=== PATIENT | female | born 1975 | race African-American/Black ===

== ENCOUNTER 2017-04-07 22:25 | Emergency (ER) | payer OTHER, SELFPAY ==
[2017-04-07] MEDS ORDERED: Acetaminophen/Codeine 30-300mg Tablet ONE ×2 (22:50)
--- NOTE | 2017-04-07 23:08 | RAD ---
THREE VIEWS OF THE LEFT HAND 04/07/17 COMPARISON: 01/20/17 HISTORY: Fall, trauma, injury. FINDINGS: No displaced fracture or evidence of dislocation. No radiopaque foreign body or subcutaneous gas. IMPRESSION: No acute osseous abnormality. POS: [facility]
--- NOTE | 2017-04-07 23:29 | RAD ---
FOUR VIEWS OF THE LEFT KNEE 04/07/17 COMPARISON: None. HISTORY: Fall, pain. FINDINGS: No fracture or dislocation. No radiopaque foreign body or subcutaneous gas. The lateral examination is limited secondary to patient positioning, limiting assessment for a knee joint effusion. IMPRESSION: No acute findings. POS: [facility]
== END 2017-04-07 23:38 | disposition home or self-care (01) ==
LOC: MADERS 22:25
DX: S83.92XA Sprain of unspecified site of left knee, initial encounter (principal); S60.222A Contusion of left hand, initial encounter; W19.XXXA Unspecified fall, initial encounter; Y93.39 Activity, other involving climbing, rappelling and jumping off

== ENCOUNTER 2017-09-18 11:59 | Emergency (ER) | payer OTHER, SELFPAY ==
[2017-09-18 12:59] LABS: ALT (SGPT) 11 U/L (8-55); AST (SGOT) 13 U/L (5-34); Albumin 4.1 g/dL (3.5-5.0); Alkaline Phosphatase 50 U/L (40-150); Anion Gap 16 mmol/L (10-20); BUN (Urea Nitrogen) 13 mg/dL (7.0-18.7); Bilirubin, Total 0.3 mg/dL (0.2-1.2); Calc. Creatinine Clearance 0 mL/min (70-130); Calcium 9.1 mg/dL (7.8-10.44); Carbon Dioxide 20 mmol/L (22-29); Chloride 110 mmol/L (98-107); Estimated GFR-MDRD Greater than 90; Globulin 3.5 g/dL (2.4-3.5); Glucose 79 mg/dL (70-105); Potassium 3.7 mmol/L (3.5-5.1); Protein, Total 7.6 g/dL (6.0-8.3); Sodium 142 mmol/L (136-145)
[2017-09-18 13:01] LABS: CKMB 0.7 ng/mL (0-6.6); Troponin I Less than 0.010 ng/mL (< 0.028)
[2017-09-18 13:04] LABS: Eosinophils 2 % (0-10); Hemoglobin 12.7 g/dL (12.0-16.0); Lymphocytes 31 % (21-51); MDiff Complete? YES; Mean Corpuscular HGB CONC 33.5 g/dL (32.0-36.0); Mean Corpuscular Hemoglobin 31.7 pg (27.0-31.0); Mean Corpuscular Volume 94.6 fl (81.0-99.0); Mean Platelet Volume 6.2 fL (7.4-10.4); Monocytes 4 % (0-10); Neutrophil 39 % (42-75); PLT Morphology Comment Appears Adequate; Platelet Count 277 thou/uL (130-400); RBC Distribution Width 12.7 % (11.5-14.5); RBC Morphology Normal; Reactive Lymphocytes 24 % (0-10); Red Blood Cell (RBC) Count 4.02 mill/uL (4.20-5.40); White Blood Cell (WBC) Count 4.1 thou/uL (4.8-10.8)
--- NOTE | 2017-09-18 14:20 | RAD ---
AP VIEW CHEST: Date: 09/18/17 HISTORY: Chest pain. FINDINGS: Comparison studies are not available. AP view of chest demonstrates the lungs to be well aerated. No evidence of active intrathoracic disea se is seen. No evidence of effusions, pneumonia, or pneumothorax seen. IMPRESSION: Unremarkable AP view chest. POS: [facility]
== END 2017-09-18 13:48 | disposition home or self-care (01) ==
LOC: MADERS 11:59
DX: F41.1 Generalized anxiety disorder (principal); F41.9 Anxiety disorder, unspecified; F31.9 Bipolar disorder, unspecified; F20.9 Schizophrenia, unspecified
CPT/HCPCS: 36415; 71010; 80053; 82553; 84484; 85025; 93005

== ENCOUNTER 2017-11-09 22:24 | Emergency (ER) | payer OTHER ==
[2017-11-09] MEDS ORDERED: Ondansetron ODT 4 MG TAB ONE (23:02)
[2017-11-09] MEDS ORDERED: HYDROcodone/Acetaminophen 10/325 mg Tablet ONE (23:02)
[2017-11-09] MEDS ORDERED: Oseltamivir 75 MG CAP ONE (23:02)
== END 2017-11-09 23:13 | disposition home or self-care (01) ==
LOC: MADERS 22:24
DX: R53.1 Weakness (principal); R52 Pain, unspecified; F31.9 Bipolar disorder, unspecified; F41.9 Anxiety disorder, unspecified; F20.9 Schizophrenia, unspecified
CPT/HCPCS: 99283; Q0162

== ENCOUNTER 2017-11-25 22:52 | Emergency (ER) | payer OTHER ==
[2017-11-25] MEDS ORDERED: Ibuprofen 800 MG TAB ONE (23:34)
[2017-11-25] MEDS ORDERED: HYDROcodone/Acetaminophen 5/325 mg Tablet ONE (23:34)
[2017-11-25] MEDS ORDERED: Cyclobenzaprine 10 MG TAB ONE (23:34)
== END 2017-11-25 23:56 | disposition home or self-care (01) ==
LOC: MADERS 22:52
DX: M54.5 Low back pain (principal); F31.9 Bipolar disorder, unspecified; F20.9 Schizophrenia, unspecified; F41.9 Anxiety disorder, unspecified
CPT/HCPCS: 99283

== ENCOUNTER 2018-04-27 18:37 | Emergency (ER) | payer OTHER | END 2018-04-27 19:05 | disposition home or self-care (01) | LOC: MADERS 18:37 | DX: O09.522 Supervision of elderly multigravida, second trimester (principal); O99.342 Other mental disorders complicating pregnancy, second trimester; F31.9 Bipolar disorder, unspecified; F20.9 Schizophrenia, unspecified; Z3A.17 17 weeks gestation of pregnancy | CPT/HCPCS: 99283 ==

== ENCOUNTER 2018-05-19 20:43 | Emergency (ER) | payer OTHER | END 2018-05-19 21:34 | disposition home or self-care (01) | LOC: MADERS 20:43 | DX: O9A.212 Injury, poisoning and certain other consequences of external causes complicating pregnancy, second trimester (principal); S39.012A Strain of muscle, fascia and tendon of lower back, initial encounter; O99.342 Other mental disorders complicating pregnancy, second trimester; F31.9 Bipolar disorder, unspecified; F41.9 Anxiety disorder, unspecified; F20.9 Schizophrenia, unspecified; Z3A.17 17 weeks gestation of pregnancy; X50.0XXA Overexertion from strenuous movement or load, initial encounter | CPT/HCPCS: 99283 ==

== ENCOUNTER 2018-05-30 13:09 | Emergency (ER) | payer OTHER | END 2018-05-30 13:56 | disposition home or self-care (01) | LOC: MADERS 13:09 | DX: O09.522 Supervision of elderly multigravida, second trimester (principal); O99.89 Other specified diseases and conditions complicating pregnancy, childbirth and the puerperium; M54.12 Radiculopathy, cervical region; O99.342 Other mental disorders complicating pregnancy, second trimester; F41.9 Anxiety disorder, unspecified; F31.9 Bipolar disorder, unspecified; F20.9 Schizophrenia, unspecified; Z3A.00 Weeks of gestation of pregnancy not specified | CPT/HCPCS: 99283 ==

== ENCOUNTER 2018-10-16 04:19 | Emergency (ER) | payer OTHER | END 2018-10-16 04:50 | disposition short-term general hospital (02) | LOC: MADERS 04:19 | DX: O09.523 Supervision of elderly multigravida, third trimester (principal); O99.89 Other specified diseases and conditions complicating pregnancy, childbirth and the puerperium; R10.2 Pelvic and perineal pain; O99.343 Other mental disorders complicating pregnancy, third trimester; F41.9 Anxiety disorder, unspecified; F31.9 Bipolar disorder, unspecified; F20.9 Schizophrenia, unspecified; Z3A.39 39 weeks gestation of pregnancy ==